=== PATIENT | female | born 1960 ===

== ENCOUNTER 2022-12-23 10:00 | Inpatient (IN) | payer OTHER ==
[~2022-12-23] VITALS: Ht 160 cm; Wt 95.3 kg
[2022-12-23] MEDS ORDERED: COZAAR25 MG PO (14:32)
[2022-12-23] MEDS ORDERED: TENORMIN25 MG PO (14:32)
[2022-12-23] MEDS ORDERED: CARAFATE1 GM PO (14:33)
[2022-12-23] MEDS ORDERED: GABAPENTIN100 M2 PO (14:33)
[2022-12-23] MEDS ORDERED: PEPCID AC10 MG PO (14:33)
[2022-12-23] MEDS ORDERED: FLONASE16 GM (14:34)
[2022-12-23] MEDS ORDERED: ZANAFLEX2 M1 PO (14:34)
[2022-12-30] MEDS ORDERED: ELIQUIS2.5 MG PO (14:56)
[2022-12-30] MEDS ORDERED: CIPRO500 MG PO (14:56)
[2022-12-30] MEDS ORDERED: PERCOCET 5-3251 EACH PO (14:56)
== END 2022-12-30 22:24 | disposition home or self-care (01) | DRG 470 ==
LOC: SURG 12-28 05:41 → O/R 12-28 05:41 → SURG 12-28 10:00
PROVIDERS: ADMIT Orthopaedic Surgery; ATTEND Orthopaedic Surgery
PROC: 0SRC0J9 Replacement of Right Knee Joint with Synthetic Substitute, Cemented, Open Approach (ICD-10-PCS; principal; 2022-12-28 14:15)
DX: M17.11 Unilateral primary osteoarthritis, right knee (principal); D62 Acute posthemorrhagic anemia; M22.11 Recurrent subluxation of patella, right knee; I10 Essential (primary) hypertension; Z96.651 Presence of right artificial knee joint; E66.8 Other obesity; Z20.822 Contact with and (suspected) exposure to COVID-19